=== PATIENT | female | born 1985 | race Hispanic/Latino ===

== ENCOUNTER 2017-05-25 18:07 | Emergency (ER) | payer OTHER ==
[2017-05-25] MEDS ORDERED: FENTANYL 100 MCG/2 ML VIAL ONE (18:41)
[2017-05-25] MEDS ORDERED: KETAMINE HCL 500 MG/10 ML VIAL ONE (18:51)
[2017-05-25] MEDS ORDERED: ONDANSETRON HCL 4 MG/2 ML VIAL ONE (19:39)
--- NOTE | 2017-05-25 20:07 | RADIOLOGY REPORT ---
Three views of the left ankle demonstrate bimalleolar fracture with posterior dislocation of the ankle joint. No other abnormality is identified. IMPRESSION: Bimalleolar fracture dislocation of the right ankle. MTDD
[2017-05-25] MEDS ORDERED: ONDANSETRON ODT 4 MG TAB.RAPDIS ONE (20:53)
[2017-05-25] MEDS ORDERED: oxyCODONE/APAP 5/325 MG PREPAC 1 TAB TABLET PO ONE (20:54)
--- NOTE | 2017-05-25 20:58 | ER PHYSICIAN DOCUMENTATION ---
Physician Documentation [facility] Name:Susan Vu Age:31 yrs Sex:Female :1985 Arrival Date:05/25/2017 Time:18:07 Bed3 Private MD:No PCP, Identified ED Darren Mcgregor Disposition: 05/27 09:38 Chart complete. tl1 Disposition: 05/25/17 20:15 Discharged to Home/Self Care. Impression: Trimalleolar Fracture. - Condition is Good. - Discharge Instructions: FRACTURE, Ankle (General). - Prescriptions for Percocet 5- 325 mg Oral Tablet - take 1 tablet by ORAL route every 6 hours As needed; 20 tablet. - Medical Reconciliation form form. - Follow up: Private Physician; When: You need surgery on the ankle AAMIR. ; Reason: Continuance of care. - Problem is new. - Symptoms have improved. HPI: 05/25 18:36 This 31 yrs old Female presents to ER via EMS with complaints of Ankle Injury tl1 - RT. 18:36 The patient presents with a deformity, an injury, pain, that is acute. The complaints tl1 affect the right ankle. Onset: The symptom(s)/episode began/occurred suddenly, just prior to arrival. Context: The problem was sustained outdoors, resulted from a mis-step by the patient, The mechanism of injury is unknown. The patient is unable to bear weight. Historical: - Allergies: No known drug Allergies; - Home Meds: 1. None - PMHx: right knee pain being tx; - PSHx: both wrists, carpal tunnel; TUBAL LIGATION; - Tetanus: < 10 years. - Ebola Screening: : Patient negative for fever greater than or equal to 101.5 degrees Fahrenheit, and additional compatible Ebola Virus Disease symptoms. Patient denies exposure to infectious person. Patient denies travel to an Ebola-affected area in the 21 days before illness onset. No symptoms or risks identified at this time. . - Immunization history: Unable to Obtain. - Social history: Smoking status: Patient states was never smoker of tobacco. Patient/guardian denies using alcohol. ROS: 18:36 MS/extremity: Positive for injury or acute deformity, pain, swelling, tenderness, of tl1 the right ankle and anterior aspect of right ankle. 18:36 All other systems are negative. Exam: 18:36 Constitutional: The patient appears alert, awake, well developed, well hydrated, well tl1 groomed, well nourished, anxious, in obvious distress, in obvious pain, restless, uncomfortable. 18:36 Head/face: Exam is negative for acute changes. 18:36 ENT: Exam is negative for acute changes. 18:36 Neck: 18:36 Neck: Exam negative for acute changes. 18:36 Neck: 18:36 Chest/axilla: Exam negative for 18:36 Cardiovascular: Rate: normal. 18:36 Respiratory: Respirations: normal, Breath sounds: are normal. 18:36 Abdomen/GI: Palpation: abdomen is soft and non-tender. 18:36 Musculoskeletal/extremity: Extremities: grossly normal except: noted in the right ankle: Pulses: are absent in the right dorsalis pedis, Joints: All joints are normal except the right ankle displays deformity, pain at rest, swelling, tenderness, Weight bearing: is unable to bear weight. Vital Signs: 18:24 BP 134 / 66; Pulse 72; Resp 18; Temp 97.5; Pulse Ox 93% on R/A; Weight 98.88 kg; Height rs 4 ft. 8 in. (142.24 cm); Pain 8/10; 18:25 BP 130 / 53 (auto/); rs 18:29 Pulse Ox 93% ; rs 18:34 Pulse Ox 95% ; rs 18:39 Pulse 69 MON; Resp 13; Pulse Ox 100% ; rs 18:42 BP 134 / 51 (auto/); rs 18:44 Pulse 72 MON; Resp 24; Pulse Ox 97% ; rs 18:45 BP 140 / 71 (auto/); rs 18:49 Pulse 82 MON; Resp 17; Pulse Ox 99% ; rs 18:54 Pulse 84 MON; Resp 22; Pulse Ox 99% ; rs 18:56 BP 126 / 77 (auto/); rs 18:59 Pulse 81 MON; Resp 20; Pulse Ox 99% ; rs 19:01 BP 117 / 57 (auto/); rs 19:04 Pulse 88 MON; Resp 20; Pulse Ox 99% ; rs 19:06 BP 110 / 87 (auto/); rs 19:09 Pulse 73 MON; Resp 23; Pulse Ox 100% ; rs 19:10 BP 134 / 65 (auto/); rs 19:14 Pulse 76 MON; Resp 26; Pulse Ox 100% ; rs 19:15 BP 134 / 66 (auto/); rs 19:19 Pulse 74 MON; Resp 20; Pulse Ox 99% ; rs 19:20 BP 132 / 67 (auto/); rs 19:24 Pulse 76 MON; Resp 17; Pulse Ox 100% ; rs 19:25 BP 119 / 69 (auto/); rs 19:29 Pulse 74 MON; Resp 20; Pulse Ox 100% ; rs 19:31 BP 105 / 43 (auto/); rs 19:34 Pulse 80 MON; Resp 17; Pulse Ox 100% ; rs 19:35 BP 107 / 56 (auto/); rs 19:39 Pulse 83 MON; Resp 20; Pulse Ox 100% ; rs 19:40 BP 130 / 70 (auto/); rs 19:44 Pulse 81 MON; Resp 17; Pulse Ox 100% ; rs 19:45 BP 121 / 66 (auto/); rs 19:49 Pulse 87 MON; Resp 20; rs 18:24 Body Mass Index 48.87 (98.88 kg, 142.24 cm) rs Procedures: 19:01 Reduction: of the right ankle, using traction, manipulation, Patient tolerated well. jm Post reduction film - reveals normal alignment. Actually done by Natalie Taylor MD w me present. . Splinting: Splint applied to right leg using Orthoglass splint, applied by myself. Examined by me, post splint application: neurovascular intact, brisk capillary refill noted, Patient tolerated well. MDM: 18:11 Patient medically screened. tl1 18:36 Differential diagnosis: fracture, dislocation. Data reviewed: vital signs, nurses tl1 notes, radiologic studies, plain films, and as a result, I will discharge patient. Test interpretation: by ED physician or midlevel provider: plain radiologic studies. Counseling: I had a detailed discussion with the patient and/or guardian regarding: the historical points, exam findings, and any diagnostic results supporting the discharge/admit diagnosis, radiology results, the need for outpatient follow up, to return to the emergency department if symptoms worsen or persist or if there are any questions or concerns that arise at home. Response to treatment: the patient's symptoms have markedly improved after treatment, and as a result, I will discharge patient. Physician consultation: Emeterio Lozano DO was called at 18:30, was contacted at 18:30, and will see patient in office, in 2-3 days. 05/25 21:01 Order name: ANKLE; [place] [id number] EDMS 05/25 19:27 Order name: Iv Saline Lock; Complete Time: 19:32 05/25 19:27 Order name: Pulse Ox Continuous; Complete Time: 19:32 05/25 19:27 Order name: Continuous Cardiac Monitoring; Complete Time: 19:32 Dispensed Medications: 18:40 Drug: Ketamine 30 mg; Route: IVP; Infused Over: 1 mins; Site: left hand; rs 20:00 Follow up: Response: No adverse reaction; Pain is decreased rs 19:30 Drug: Zofran 4 mg; Route: IVP; Rate: 2 mg/min; Infused Over: 2 mins; Site: right hand; rs 20:00 Follow up: Response: Nausea is decreased rs 19:31 Drug: oxyCODONE 10 mg; Route: PO; rs 20:00 Follow up: Response: Pain is decreased rs 20:55 Drug: Percocet Tablet (5 mg-325 mg) 6 tabs; Route: PO; rs 20:55 Follow up: Response: Pharmacy closed - take home med pack; Dispensed at discharge. rs 20:55 Drug: Zofran 1 tablet; Route: PO; rs 20:56 Follow up: Response: Pharmacy closed - take home med pack; Dispensed at discharge. rs Signatures: Johanna Lewis RN RN rs Meyer, John, MD MD jm Roberts, Leslie, RN RN lpr Leigh, Tom, MD MD tl1
--- NOTE | 2017-05-25 20:58 | ER NURSING DOCUMENTATION ---
Nurse's Notes [facility] Name:Susan Vu Age:31 yrs Sex:Female :1985 Arrival Date:05/25/2017 Time:18:07 Bed3 Private MD:No PCP, Identified Diagnosis:Trimalleolar Fracture Presentation: 05/25 18:35 Acuity: CHITO 2 lpr 18:46 Presenting complaint: Patient states: slipped on a rock. immediate pain in right ankle. rs Unable to wt bear. Randolph a pop. Occurred about 6 pm today. Transition of care: patient was not received from another setting of care. 18:46 Method Of Arrival: EMS: 410 rs Triage Assessment: 19:03 General: Appears distressed, uncomfortable, well developed, well nourished, well rs groomed, Behavior is cooperative, crying, pleasant. Pain: Complains of pain in right ankle Pain does not radiate. Pain currently is 6 out of 10 on a pain scale. Neuro: No deficits noted. Level of Consciousness is awake, alert, Oriented to person, place, time, event. Cardiovascular: No deficits noted. Capillary refill < 3 seconds Pulses are 3+ in left radial artery. Respiratory: No deficits noted. Breath sounds are clear bilaterally. GI: No deficits noted. Derm: No deficits noted. Skin is pink, warm & dry. Musculoskeletal: Circulation, motion, and sensation intact Capillary refill Range of motion limited in right ankle Tenderness present in right ankle. Historical: - Allergies: No known drug Allergies; - Home Meds: 1. None - PMHx: right knee pain being tx; - PSHx: both wrists, carpal tunnel; TUBAL LIGATION; - Tetanus: < 10 years. - Ebola Screening: : Patient negative for fever greater than or equal to 101.5 degrees Fahrenheit, and additional compatible Ebola Virus Disease symptoms. Patient denies exposure to infectious person. Patient denies travel to an Ebola-affected area in the 21 days before illness onset. No symptoms or risks identified at this time. . - Immunization history: Unable to Obtain. - Social history: Smoking status: Patient states was never smoker of tobacco. Patient/guardian denies using alcohol. Screenin:33 Infectious Disease Risk None. Abuse screen: Denies threats or abuse. Nutritional rs screening: No deficits noted. Assessment: 19:32 Reassessment: Patient states feeling better. Patient states symptoms have improved. rs Patient appears in no apparent distress at this time. Vital Signs: 18:24 BP 134 / 66; Pulse 72; Resp 18; Temp 97.5; Pulse Ox 93% on R/A; Weight 98.88 kg; Height rs 4 ft. 8 in. (142.24 cm); Pain 8/10; 18:25 BP 130 / 53 (auto/); rs 18:29 Pulse Ox 93% ; rs 18:34 Pulse Ox 95% ; rs 18:39 Pulse 69 MON; Resp 13; Pulse Ox 100% ; rs 18:42 BP 134 / 51 (auto/); rs 18:44 Pulse 72 MON; Resp 24; Pulse Ox 97% ; rs 18:45 BP 140 / 71 (auto/); rs 18:49 Pulse 82 MON; Resp 17; Pulse Ox 99% ; rs 18:54 Pulse 84 MON; Resp 22; Pulse Ox 99% ; rs 18:56 BP 126 / 77 (auto/); rs 18:59 Pulse 81 MON; Resp 20; Pulse Ox 99% ; rs 19:01 BP 117 / 57 (auto/); rs 19:04 Pulse 88 MON; Resp 20; Pulse Ox 99% ; rs 19:06 BP 110 / 87 (auto/); rs 19:09 Pulse 73 MON; Resp 23; Pulse Ox 100% ; rs 19:10 BP 134 / 65 (auto/); rs 19:14 Pulse 76 MON; Resp 26; Pulse Ox 100% ; rs 19:15 BP 134 / 66 (auto/); rs 19:19 Pulse 74 MON; Resp 20; Pulse Ox 99% ; rs 19:20 BP 132 / 67 (auto/); rs 19:24 Pulse 76 MON; Resp 17; Pulse Ox 100% ; rs 19:25 BP 119 / 69 (auto/); rs 19:29 Pulse 74 MON; Resp 20; Pulse Ox 100% ; rs 19:31 BP 105 / 43 (auto/); rs 19:34 Pulse 80 MON; Resp 17; Pulse Ox 100% ; rs 19:35 BP 107 / 56 (auto/); rs 19:39 Pulse 83 MON; Resp 20; Pulse Ox 100% ; rs 19:40 BP 130 / 70 (auto/); rs 19:44 Pulse 81 MON; Resp 17; Pulse Ox 100% ; rs 19:45 BP 121 / 66 (auto/); rs 19:49 Pulse 87 MON; Resp 20; rs 18:24 Body Mass Index 48.87 (98.88 kg, 142.24 cm) rs ED Course: 18:08 Patient arrived in ED. ds 18:08 No PCP, Identified is Private Physician. ds 18:11 Brandon Estrada MD is Attending Physician. tl1 18:29 Patient moved to radiology. dnn 18:29 Patient moved back from radiology. dnn 18:35 Triage completed. lpr 19:00 Arm band placed on Bed in low position Call Light in Reach HOB Elevated Side rails up rs x2. Family accompanied patient. X-ray done. 19:26 Attending Physician role handed off by Brandon Estrada MD jm 19:26 Darren Adan MD is Attending Physician. wallace 19:33 Valuables Remains with patient Patient has correct armband on for positive rs identification. Bed in low position. Call light in reach. Side rails up X2. Adult w/ patient. package sealer on. Pulse ox on. NIBP On - RN Monitoring Only. Door closed. Noise minimized. Verbal reassurance given. 19:34 Assist Provider Assist provider with reduction of right ankle using manipulation, Set rs up for procedure. Performed by Brandon Estrada MD Immobilized with OCL splint, karolyn wrap, Patient tolerated well. Crutch training done. Posterior lower leg splint applied on right leg. 19:59 Johanna Lewis, RN is Primary Nurse. rs 20:57 Discontinued lock intact, bleeding controlled, pressure dressing applied, No rs redness/swelling at site. Administered Medications: 18:40 Drug: Ketamine 30 mg; Route: IVP; Infused Over: 1 mins; Site: left hand; rs 20:00 Follow up: Response: No adverse reaction; Pain is decreased rs 19:30 Drug: Zofran 4 mg; Route: IVP; Rate: 2 mg/min; Infused Over: 2 mins; Site: right hand; rs 20:00 Follow up: Response: Nausea is decreased rs 19:31 Drug: oxyCODONE 10 mg; Route: PO; rs 20:00 Follow up: Response: Pain is decreased rs 20:55 Drug: Percocet Tablet (5 mg-325 mg) 6 tabs; Route: PO; rs 20:55 Follow up: Response: Pharmacy closed - take home med pack; Dispensed at discharge. rs 20:55 Drug: Zofran 1 tablet; Route: PO; rs 20:56 Follow up: Response: Pharmacy closed - take home med pack; Dispensed at discharge. rs Outcome: 20:15 Discharge ordered by . wallace 20:57 Discharged to home via wheelchair. rs 20:57 Condition: improved 20:57 Discharge instructions given to patient, family, Instructed on crutch walking, discharge instructions, follow up and referral plans. medication usage, Demonstrated understanding of instructions, crutch walking, medications, Prescriptions given X 1. 20:58 Patient left the ED. rs 05/26 10:32 Discharge F/U Call: Spoke with: spouse with permission of patient. Are you having any lc pain? yes. How are you managing your pain? Patient is taking medication: IBUPROFEN, LOST PERCOCET RX, NOW IN [place], HAS APPT WITH [facility] DOWN THERE AND TOLD TO CONTACT THEM FOR A RX. Have you filled your prescriptions? no. Reasons not filled: LOST Did your discharge instructions answer all of your questions? yes Have you made a f/u appointment? yes Overall Care on a scale of 1-10 with 10 being the best care, you rate our care as: Other comments: KEEPING ELEVATED AMD CSM INTACT TO TOES Signatures: Johanna Lewis RN RN rs Evie Rush RN RN lc Srot, Angela, Reg Reg Darren Faye MD MD jm Roberts, Leslie, RN RN lpr Norman, David dnn Leigh, Tom, MD MD tl1
== END 2017-05-25 20:58 | disposition home or self-care (01) ==
LOC: ER 18:07
DX: S82.851A Displaced trimalleolar fracture of right lower leg, initial encounter for closed fracture (principal); W18.49XA Other slipping, tripping and stumbling without falling, initial encounter; Y92.89 Other specified places as the place of occurrence of the external cause; Y93.01 Activity, walking, marching and hiking; Z99.89 Dependence on other enabling machines and devices; Z74.3 Need for continuous supervision
CPT/HCPCS: 29515; 96374; 96375; 99285; A0425; A0427; J2405; J3010